=== PATIENT | female | born 1985 | race Caucasian/White ===

== ENCOUNTER 2021-02-10 22:57 | Observation (INO) | END 2021-02-10 23:42 | disposition home or self-care (01) | LOC: 1NENULAB | PROVIDERS: ADMIT Registered Nurse; ATTEND Registered Nurse ==

== ENCOUNTER 2021-02-12 06:10 | Inpatient (IN) ==
[2021-02-12] MEDS ORDERED: Lidocaine 1% 20 ML MDV INFILT PRN (06:22)
[2021-02-12] MEDS ORDERED: Famotidine 20 MG/2 ML VIAL IVP PRN (06:22)
[2021-02-12] MEDS ORDERED: Ondansetron 4 MG/2 ML VIAL IVP PRN ×2 (06:22→08:21)
[2021-02-12] MEDS ORDERED: Naloxone 0.4 MG/ML INJ IVP PRN ×2 (06:22→08:21)
[2021-02-12] MEDS ORDERED: miSOPROStoL 25 MCG TABLET PO PRN (06:22)
[2021-02-12] MEDS ORDERED: Azithromycin 500 MG in 0.9 % Sodium Chloride 250 ML IVPB ONE (06:22)
[2021-02-12] MEDS ORDERED: *HR* Nalbuphine 10 MG/ML AMPUL IV PRN (06:22)
[2021-02-12] MEDS ORDERED: Metoclopramide 10 MG/2 ML VIAL IVP PRN (06:22)
[2021-02-12 06:54] LABS: Basophils % 0.2 %; Eosinophils % 0.5 %; Hematocrit 33.2 % (35.3-44.9); Hemoglobin 11.6 g/dL (11.5-15.4); Immature Granulocytes % 0.3 % (0-4); Lymphocytes # 1.7 K/mcL (0.6-4.6); Lymphocytes % 27.5 %; Mean Corpuscular HGB Conc 34.9 g/dL (31.6-35.5); Mean Corpuscular Hemoglobin 31.7 pg (28.0-33.3); Mean Corpuscular Volume 90.7 fL (83.0-100.0); Mean Platelet Volume 10.4 fL (9.4-12.4); Monocytes # 0.4 K/mcL (0.0-1.3); Monocytes % 7.1 %; Neutrophils # 3.9 K/mcL (1.6-8.9); Platelet Count 157 K/mcL (140-400); Red Blood Count 3.66 M/mcL (3.82-4.97); Red Cell Distribution Width 12.4 % (11.5-14.5); Segmented Neutrophils % 64.4 %
[2021-02-12] MEDS ORDERED: *HR* FentaNYL (PF) 100 MCG/2 ML VIAL EP ONE (08:21)
[2021-02-12] MEDS ORDERED: Ropivacaine/PF 0.2% 20 ML VIAL EP ONE (08:21)
[2021-02-12] MEDS ORDERED: EPHEDrine 50 MG/ML VIAL IVP PRN (08:21)
[2021-02-12] MEDS ORDERED: Epidural Premix (fent/bupiv) 110 ML EP SCH (08:30)
[2021-02-12] MEDS ORDERED: EPHEDrine 50 MG/ML VIAL ONE (10:53)
[2021-02-12] MEDS: Ringers Solution, Lactated 1,000 ML IVC SCH ×2 (11:10→14:26)
[2021-02-12] MEDS ORDERED: Oxytocin 20 units/ LR 1000 mL 20 UNIT/1,000 ML BAG IVC ONE (11:14)
[2021-02-12] MEDS ORDERED: Oxytocin 20 units/ LR 1000 mL 20 UNIT/1,000 ML BAG IVC SCH ×3 (11:30→18:30)
[2021-02-12] MEDS ORDERED: 0.9 % Sodium Chloride 1,000 ML ONE (13:52)
[2021-02-12] MEDS ORDERED: Ringers Solution, Lactated 1,000 ML ONE (14:12)
[2021-02-12 16:08] LABS: Amphetamine Screen,Urine Negative ng/mL (Cutoff=1000); Barbiturate Screen,Urine Negative ng/mL (Cutoff=200); Benzodiazepines Screen,Urine Negative ng/mL (Cutoff=200); Cannabinoid Screen,Urine Negative ng/mL (Cutoff = 50); Cocaine Screen,Urine Negative ng/mL (Cutoff= 300); Opiate Screen,Urine Negative ng/mL (Cutoff=300); Phencyclidine Screen,Urine Negative ng/mL (Cutoff=25)
[2021-02-12] MEDS ORDERED: Ibuprofen 600 MG TABLET PO PRN (17:51)
[2021-02-12] MEDS ORDERED: Rho Immune Globulin 1,500 UNIT SYRINGE IM PRN ×2 (17:51→18:29)
[2021-02-12] MEDS ORDERED: Measles/Mumps/Rubella Vacc 0.5 ML VIAL SQ PRN ×2 (17:51→18:29)
[2021-02-12] MEDS ORDERED: Acetaminophen 325 MG TABLET PO PRN (17:51)
[2021-02-12] MEDS ORDERED: Benzocaine/Menthol 56 GM AEROSOL SPRAY TP PRN (18:29)
[2021-02-12] MEDS ORDERED: Lanolin 7 G OINT...G. TP PRN (18:29)
[2021-02-12] MEDS: Acetaminophen 325 MG TABLET PO PRN (19:44)
[2021-02-13] MEDS: Acetaminophen 325 MG TABLET PO PRN ×3 (03:11→16:20)
[2021-02-13 07:57] VITALS: BP 107/73
[2021-02-13] MEDS ORDERED: Prenatal Vit/FA 1 EACH TABLET PO SCH ×2 (09:00)
== END 2021-02-13 17:00 | disposition home or self-care (01) | DRG 807 ==
LOC: 1NENULAB 06:10 → 1NENUOBS 17:38
PROVIDERS: ADMIT Obstetrics & Gynecology; ATTEND Obstetrics & Gynecology